=== PATIENT | female | born 1940 | race Caucasian/White ===

== ENCOUNTER 2016-07-20 18:17 | Emergency (ER) | payer OTHER ==
[~2016-07-20] VITALS: Ht 160 cm; Wt 59.0 kg
[~2016-07-20 18:17] MED LIST: AMIO200T2 PO; ATOR40TA68 PO; FURO-150 PO; GABA-531 PO; LEVE500T13 PO; LEVO75TA7 PO; LOSA100T11 PO; PRO20 PO; PRO40 PO; TRAZ150T77 PO; UBID1CAP53 PO; WARF2TAB2 PO; WARF4TAB2 PO
--- NOTE | 2016-07-20 18:29 | NUR ---
Patient to ER bed 8 to gown for evaluation. Patient is here. Patient sustained a fall with resulting 3cm chin lac. Side rails up. Report given to Carissa DIANA.
[2016-07-20 18:30] VITALS: BP 160/59; PULSE 69; RESP 16; TEMP 98.6; O2SAT 99
[2016-07-20] MEDS ORDERED: LIDOCAINE/EPI 1% 1:100000 20 ML VIAL INJ ONE (18:30)
[2016-07-20] MEDS ORDERED: DIPH-TET-PERTUS Vaccine 0.5 ML VIAL (ADACEL) I.M. ONE (18:30)
--- NOTE | 2016-07-20 18:30 | NUR ---
Pt came into the ER in stable condition. Pt stated she had a mechanical trip and fall. Pt stated that she fell and her chin hit the ground. Pt present w/ laceration to chin. -KO -N/V. No acute distress noted at this time, will continue to monitor
--- NOTE | 2016-07-20 18:45 | NUR ---
ER at bedside examining patient.
[2016-07-20 19:56] VITALS: BP 147/62; PULSE 69; RESP 16; TEMP 98.6; O2SAT 99
--- NOTE | 2016-07-20 19:56 | NUR ---
Patient given written and verbal discharge instructions and verbalizes understanding. ER MD Fitzpatrick discussed with patient the results and treatment provided. Patient in stable condition. ID arm band removed. Patient educated on pain management and to follow up with PMD. Pain Scale 0/10. Opportunity for questions provided and answered.
== END 2016-07-20 19:56 | disposition home or self-care (01) ==
LOC: SED 18:17 → MERGE 18:17 → SED 19:56
DX: S01.81XA Laceration without foreign body of other part of head, initial encounter (principal); E78.5 Hyperlipidemia, unspecified; I10 Essential (primary) hypertension; Z95.2 Presence of prosthetic heart valve; W01.0XXA Fall on same level from slipping, tripping and stumbling without subsequent striking against object, initial encounter; Y93.89 Activity, other specified; Y92.89 Other specified places as the place of occurrence of the external cause; Y99.8 Other external cause status
CPT/HCPCS: 70450-TC; 99284